=== PATIENT | female | born 1975 | race Caucasian/White ===

== ENCOUNTER 2016-07-16 23:07 | Inpatient (IN) | payer OTHER ==
[~2016-07-16] VITALS: Ht 170.2 cm; Wt 90.7 kg
[2016-07-17 00:25] LABS: BASOPHIL % 0.3 % (0-2); PLATELET COUNT 274 x10^3mcL (130-400); RED CELL DISTRIBUTION WIDTH 13.4 % (11.5-14.5)
[2016-07-17 00:38] LABS: ALBUMIN 3.4 g/dL (3.4-5.0); ALKALINE PHOSPHATASE 126 U/L (46-116); ALT/SGPT 28 U/L (14-59); AMYLASE 72 U/L (25-115); AST/SGOT 44 U/L (15-37); BILIRUBIN TOTAL 0.8 mg/dL (0.20-1.00); CALCIUM 8.8 mg/dL (8.5-10.1); CARBON DIOXIDE 29.2 mmol/L (21-32); CHLORIDE SERUM 104 mmol/L (98-107); CREATININE SERUM 0.8 mg/dL (0.6-1.0); GFR1 > 60 mL/min; GLUCOSE SERUM 139 mg/dL (74-106); LIPASE 188 IU/L (73-393); POTASSIUM SERUM 3.7 mmol/L (3.5-5.1); SODIUM SERUM 141 mmol/L (136-145); TOTAL PROTEIN, SERUM 8.1 g/dL (6.4-8.2)
[2016-07-17 03:36] LABS: MAGNESIUM 1.9 mg/dL (1.8-2.4); PHOSPHOROUS 2.4 mg/dL (2.5-4.9)
[2016-07-17 03:44] LABS: T3 TOTAL 1.16 ng/mL
[2016-07-17 03:45] LABS: FREE T4 0.76 ng/dL (0.76-1.46); T4(THYROXINE) 6.4 ug/dL (4.7-13.3)
[2016-07-17 03:46] LABS: CHOLESTEROL/HDL RATIO 3.4
[2016-07-17 03:58] VITALS: BP 142/89
[2016-07-17 05:11] VITALS: BP 123/82
[2016-07-17 06:19] LABS: BASOPHIL % 0.4 % (0-2); PLATELET COUNT 248 x10^3mcL (130-400); RED CELL DISTRIBUTION WIDTH 13.3 % (11.5-14.5)
[2016-07-17 06:25] LABS: CALCIUM 8.4 mg/dL (8.5-10.1); CARBON DIOXIDE 25.9 mmol/L (21-32); CHLORIDE SERUM 107 mmol/L (98-107); CREATININE SERUM 0.7 mg/dL (0.6-1.0); GFR1 > 60 mL/min; GLUCOSE SERUM 112 mg/dL (74-106); SODIUM SERUM 141 mmol/L (136-145)
[2016-07-17 06:41] LABS: ALBUMIN 2.6 g/dL (3.4-5.0)
[2016-07-17 09:25] VITALS: BP 114/82
[2016-07-17 13:04] LABS: microscopic required? YES; urine erythrocyte TRACE (NEGATIVE)
[2016-07-17 13:17] LABS: AMPHETAMINE QUAL UR NONE DETECTED (NEG <=1000)
[2016-07-17 15:39] VITALS: BP 151/86
[2016-07-17 18:00] VITALS: BP 114/64
[2016-07-17 22:19] VITALS: BP 119/70
[2016-07-18 05:30] VITALS: BP 122/75
[2016-07-18 07:10] LABS: BASOPHIL % 0.3 % (0-2); PLATELET COUNT 233 x10^3mcL (130-400); RED CELL DISTRIBUTION WIDTH 13.5 % (11.5-14.5)
[2016-07-18 07:25] LABS: CALCIUM 8.6 mg/dL (8.5-10.1); CARBON DIOXIDE 26.6 mmol/L (21-32); CHLORIDE SERUM 108 mmol/L (98-107); CREATININE SERUM 0.6 mg/dL (0.6-1.0); GFR1 > 60 mL/min; GLUCOSE SERUM 111 mg/dL (74-106); MAGNESIUM 1.7 mg/dL (1.8-2.4); PHOSPHOROUS 3.1 mg/dL (2.5-4.9); POTASSIUM SERUM 4.1 mmol/L (3.5-5.1); SODIUM SERUM 142 mmol/L (136-145)
[2016-07-18 09:35] VITALS: BP 123/81
[2016-07-18 12:26] VITALS: BP 117/65
[2016-07-18 17:37] VITALS: BP 136/77
[2016-07-18 21:22] VITALS: BP 122/89
[2016-07-19 05:02] VITALS: BP 129/84
[2016-07-19 08:52] VITALS: BP 143/97
[2016-07-19] MEDS ORDERED: COL100 PO (10:10)
[2016-07-19] MEDS ORDERED: NORCO1 TA2 PO (10:11)
[2016-07-19] MEDS ORDERED: MOT800 PO (10:12)
[2016-07-19 10:48] VITALS: BP 143/97
[2016-07-19 11:31] VITALS: BP 143/97
== END 2016-07-19 14:22 | disposition home or self-care (01) | DRG 853 ==
LOC: ED 23:07 → DU 07-17 02:28
PROVIDERS: Emergency Medicine; Surgery; ADMIT Family Medicine
PROC: 0FT44ZZ Resection of Gallbladder, Percutaneous Endoscopic Approach (ICD-10-PCS; principal; 2016-07-17 12:30)
DX: A41.9 Sepsis, unspecified organism (principal); N17.0 Acute kidney failure with tubular necrosis; E43 Unspecified severe protein-calorie malnutrition; K80.42 Calculus of bile duct with acute cholecystitis without obstruction; N20.0 Calculus of kidney; Z87.442 Personal history of urinary calculi; E87.8 Other disorders of electrolyte and fluid balance, not elsewhere classified; E83.42 Hypomagnesemia; E83.51 Hypocalcemia; E83.39 Other disorders of phosphorus metabolism
CPT/HCPCS: 83880; 84439; 94150; J0295; J0690; J1170; J1885; J1956; J2405; J3010; J3490; J7030; Q0092